=== PATIENT | male | born 1965 | race Caucasian/White ===

== ENCOUNTER 2017-09-28 14:45 | Emergency (ER) | payer OTHER, BC ==
[2017-09-28 14:55] VITALS: BP 128/87
[2017-09-28] MEDS ORDERED: Sodium Chloride 0.9% 10 ML Syringe FLUSH PRN (15:18)
--- NOTE | 2017-09-28 15:32 | EDM.PDOC ---
ED HPI GENERAL MEDICAL PROBLEM - General Chief Complaint: Chest Pain Stated Complaint: CHEST PAIN/RETAINING WATER Time Seen by Provider: 09/28/17 15:10 Source of Information: Reports: Patient History Limitations: Reports: No Limitations - History of Present Illness INITIAL COMMENTS - FREE TEXT/NARRATIVE: 52-year-old male sent over from the [place] for evaluation as pain. Reports the chest pain has been going on for the last 2-3 days. This is the lab will left chest just lateral to the sternum around ribs 4 and 5. He states that it is a constant dull deep pain. Rates it as a 2 or 3 out of 10. Reports associated symptoms of shortness of breath and malaise. Reports diaphoresis with mild exertion. He also feels that he is retaining water as he feels a sloshing in his stomach and has appreciated edema. He denies any nausea, vomiting, lightheadedness or syncope. Denies any pain in his legs. Patient states he's a stress test before as he has had chest pain in the past. Last stress test was somewhere between 2-4 years ago. States he has been told he has a enlarged left atrium or left ventricle in the past. He is currently on a baby aspirin 1 tab every couple days. He wears CPAP at night. Past medical history includes hypertension. No cardiac history. Chest Pain Score (Numeric/FACES): 3 - Related Data Allergies Allergy/AdvReac Type Severity Reaction Status Date / Time erthyomycin Allergy Rash Uncoded 09/28/17 14:50 Home Meds: Home Meds Aspirin [Halfprin] 81 mg PO DAILY 06/04/16 [History] Diclofenac Sodium [Voltaren] 50 mg PO TIDMEALS #30 tab.ec 06/04/16 [Rx] LORazepam [Ativan] 0.5 mg PO ASDIRECTED PRN 06/04/16 [History] Sertraline HCl [Zoloft] 200 mg PO DAILY 06/04/16 [History] predniSONE [Deltasone] 20 mg PO ASDIRECTED #15 tablet 06/04/16 [Rx] Past Medical History Cardiovascular History: Reports: Hypertension Other Cardiovascular History: enlarged left atrium Genitourinary History: Reports: Renal Calculus Psychiatric History: Reports: Anxiety, Depression, PTSD - Past Surgical History GI Surgical History: Reports: Hernia, Abdominal, Other (See Below) Social & Family History - Tobacco Use Smoking Status *Q: Former Smoker Used Tobacco, but Quit: No Month/Year Tobacco Last Used: 2 weeks - Caffeine Use Caffeine Use: Reports: Coffee - Recreational Drug Use Recreational Drug Use: No - Living Situation & Occupation Living situation: Reports: Single Occupation: Employed ED ROS GENERAL - Review of Systems Review Of Systems: See Below Constitutional: Reports: Malaise, Diaphoresis. Denies: Fever HEENT: Denies: Ear Pain, Throat Pain Respiratory: Reports: Shortness of Breath Cardiovascular: Reports: Chest Pain, Edema. Denies: Lightheadedness, Syncope GI/Abdominal: Denies: Abdominal Pain, Nausea, Vomiting Neurological: Denies: Syncope ED EXAM, GENERAL - Physical Exam Exam: See Below Exam Limited By: No Limitations General Appearance: Alert, WD/WN, No Apparent Distress, Obese Eye Exam: Bilateral Eye: Normal Inspection Ears: Normal External Exam Nose: Normal Inspection Throat/Mouth: Normal Inspection, Normal Voice, No Airway Compromise Respiratory/Chest: No Respiratory Distress, Lungs Clear, Normal Breath Sounds, Other (identifies chest pain at the left sternalcostal border at ribs 4 and 5) Cardiovascular: Normal Peripheral Pulses, Regular Rate, Rhythm, No Murmur, Other (trace nonpitting edema) GI/Abdominal: Soft, Non-Tender Neurological: Alert, Oriented, Normal Cognition Psychiatric: Normal Affect, Normal Mood Skin Exam: Warm, Dry, Normal Color EKG INTERPRETATION EKG Date: 09/28/17 Time: 14:55 Rhythm: NSR Rate (Beats/Min): 75 [place]: LAD-Left Delmont Deviation ((-1 degree)) QT: Prolonged (mildly) EKG Interpretation Comments: NSR at 75 bpm. Early "R" wave transition. QT mildly prolonged. LAD (-1 degree). Reviewed by myself and Dr. Becerra. Course - Vital Signs Last Recorded V/S: Last Vital Signs Temp 35.9 C 09/28/17 14:50 Pulse 85 09/28/17 14:50 Resp 13 09/28/17 14:50 BP 128/87 09/28/17 14:50 Pulse Ox 97 09/28/17 14:50 - Orders/Labs/Meds Orders: Active Orders 24 hr Category Date Time Status Cardiac Monitoring [RC] . DIRECTED Care 09/28/17 15:18 Active EKG Documentation Completion [RC] ASDIRECTED Care 09/28/17 15:04 Active Peripheral IV Care [RC] . DIRECTED Care 09/28/17 15:18 Active Chest 1V Frontal [CR] Stat Exams 09/28/17 15:08 Taken Peripheral IV Insertion Adult [OM.PC] Routine Oth 09/28/17 15:18 Ordered EKG 12 Lead [EK] Stat Ther 09/28/17 15:04 Ordered Labs: Laboratory Tests 09/28/17 09/28/17 09/28/17 Range/Units 14:53 14:53 14:53 WBC 10.46 H (4.23-9.07) K/mm3 RBC 5.05 (4.63-6.08) M/mm3 Hgb 14.9 (13.7-17.5) gm/L Hct 43.8 (40.1-51.0) % MCV 86.7 (79.0-92.2) fl MCH 29.5 (25.7-32.2) pg MCHC 34.0 (32.2-35.5) g/dl RDW Std Deviation 42.0 (35.1-43.9) fL Plt Count 302 (163-337) K/mm3 MPV 10.1 (9.4-12.3) fl Neut % (Auto) 56.2 (34.0-67.9) % Lymph % (Auto) 33.7 (21.8-53.1) % Hudspeth % (Auto) 6.6 (5.3-12.2) % Eos % (Auto) 2.8 (0.8-7.0) Baso % (Auto) 0.4 (0.1-1.2) % Neut # (Auto) 5.89 H (1.78-5.38) K/mm3 Lymph # (Auto) 3.52 (1.32-3.57) K/mm3 Hudspeth # (Auto) 0.69 (0.30-0.82) K/mm3 Eos # (Auto) 0.29 (0.04-0.54) K/mm3 Baso # (Auto) 0.04 (0.01-0.08) K/mm3 PT 10.2 (8.0-13.0) SECONDS INR 0.95 APTT 27 (22-36) SECONDS D-Dimer, Quantitative (0.19-0.59) mg/L Sodium (136-145) mEq/L Potassium (3.5-5.1) mEq/L Chloride (98-107) mEq/L Carbon Dioxide (21-32) mEq/L Anion Gap (5-15) BUN (7-18) mg/dL Creatinine (0.7-1.3) mg/dL Est Cr Clr Drug Dosing mL/min Estimated GFR (MDRD) (>60) mL/min BUN/Creatinine Ratio (14-18) Glucose (74-106) mg/dL Calcium (8.5-10.1) mg/dL Total Bilirubin (0.2-1.0) mg/dL AST (15-37) U/L ALT (16-63) U/L Alkaline Phosphatase (46-116) U/L CK-MB (CK-2) 0.8 (0-3.6) ng/ml Troponin I < 0.017 (0.00-0.056) ng/mL NT-Pro-B Natriuret Pep (0-125) pg/mL Total Protein (6.4-8.2) g/dl Albumin (3.4-5.0) g/dl Globulin gm/dL Albumin/Globulin Ratio (1-2) Lipase (73-393) U/L 09/28/17 09/28/17 09/28/17 Range/Units 14:53 14:53 14:53 WBC (4.23-9.07) K/mm3 RBC (4.63-6.08) M/mm3 Hgb (13.7-17.5) gm/L Hct (40.1-51.0) % MCV (79.0-92.2) fl MCH (25.7-32.2) pg MCHC (32.2-35.5) g/dl RDW Std Deviation (35.1-43.9) fL Plt Count (163-337) K/mm3 MPV (9.4-12.3) fl Neut % (Auto) (34.0-67.9) % Lymph % (Auto) (21.8-53.1) % Hudspeth % (Auto) (5.3-12.2) % Eos % (Auto) (0.8-7.0) Baso % (Auto) (0.1-1.2) % Neut # (Auto) (1.78-5.38) K/mm3 Lymph # (Auto) (1.32-3.57) K/mm3 Hudspeth # (Auto) (0.30-0.82) K/mm3 Eos # (Auto) (0.04-0.54) K/mm3 Baso # (Auto) (0.01-0.08) K/mm3 PT (8.0-13.0) SECONDS INR APTT (22-36) SECONDS D-Dimer, Quantitative 0.38 (0.19-0.59) mg/L Sodium 140 (136-145) mEq/L Potassium 4.0 (3.5-5.1) mEq/L Chloride 103 (98-107) mEq/L Carbon Dioxide 28 (21-32) mEq/L Anion Gap 13.0 (5-15) BUN 15 (7-18) mg/dL Creatinine 0.9 (0.7-1.3) mg/dL Est Cr Clr Drug Dosing 101.39 mL/min Estimated GFR (MDRD) > 60 (>60) mL/min BUN/Creatinine Ratio 16.7 (14-18) Glucose 108 H (74-106) mg/dL Calcium 9.4 (8.5-10.1) mg/dL Total Bilirubin 0.3 (0.2-1.0) mg/dL AST 29 (15-37) U/L ALT 49 (16-63) U/L Alkaline Phosphatase 95 (46-116) U/L CK-MB (CK-2) (0-3.6) ng/ml Troponin I (0.00-0.056) ng/mL NT-Pro-B Natriuret Pep 51 (0-125) pg/mL Total Protein 7.8 (6.4-8.2) g/dl Albumin 4.2 (3.4-5.0) g/dl Globulin 3.6 gm/dL Albumin/Globulin Ratio 1.2 (1-2) Lipase 115 (73-393) U/L Meds: Medications Discontinued Medications Generic Name Dose Route Start Last Admin Trade Name Freq PRN Reason Stop Dose Admin Sodium Chloride 10 ml 09/28/17 15:18 09/28/17 15:24 Saline Flush FLUSH 10 ml ASDIRECTED PRN Administration Keep Vein Open - Radiology Interpretation Free Text/Narrative:: Chest: Portable view of the chest was obtained. Comparison: Prior chest x-ray of 06/09/16. Heart size and mediastinum are normal. Lungs are clear. Bony structures are grossly intact. Impression: 1. Nothing acute is seen on portable chest x-ray. - Re-Assessments/Exams Free Text/Narrative Re-Assessment/Exam: 09/28/17 16:50 I reviewed the labs, EKG and imaging the patient. Appears the chest wall in origin. I will have him follow-up with his primary care provider. Discharge instructions as documented. Departure - Departure Time of Disposition: 16:52 Disposition: Home, Self-Care 01 Condition: Fair Clinical Impression: Chest wall pain Instructions: Chest Wall Pain, [id number] Referrals: Rossy Clarke DO [Primary Care Provider] - Forms: ED Department Discharge Additional Instructions: [id number] Tylenol or Motrin as needed for pain relief. You may also try using heat or ice for additional pain relief. Expect this to last about 7-10 days. If this persists beyond 7-10 days follow- up with your primary care provider. Please return to the ER if your symptoms change or worsen. - My Orders Last 24 Hours: My Active Orders 09/28/17 15:04 EKG Documentation Completion [RC] ASDIRECTED EKG 12 Lead [EK] Stat 09/28/17 15:08 Chest 1V Frontal [CR] Stat 09/28/17 15:18 Cardiac Monitoring [RC] . DIRECTED Peripheral IV Care [RC] . DIRECTED Peripheral IV Insertion Adult [OM.PC] Routine - Assessment/Plan Last 24 Hours: My Active Orders 09/28/17 15:04 EKG Documentation Completion [RC] ASDIRECTED EKG 12 Lead [EK] Stat 09/28/17 15:08 Chest 1V Frontal [CR] Stat 09/28/17 15:18 Cardiac Monitoring [RC] . DIRECTED Peripheral IV Care [RC] . DIRECTED Peripheral IV Insertion Adult [OM.PC] Routine
--- NOTE | 2017-09-29 07:58 | CR ---
Chest: Portable view of the chest was obtained. Comparison: Prior chest x-ray of 06/09/16. Heart size and mediastinum are normal. Lungs are clear. Bony structures are grossly intact. Impression: 1. Nothing acute is seen on portable chest x-ray. Diagnostic code #1
== END 2017-09-28 16:55 | disposition home or self-care (01) ==
LOC: JD.ED 14:45
DX: R07.81 Pleurodynia (principal); I10 Essential (primary) hypertension; F41.9 Anxiety disorder, unspecified; F32.9 Major depressive disorder, single episode, unspecified; Z87.891 Personal history of nicotine dependence; Z88.1 Allergy status to other antibiotic agents; Z87.441 Personal history of nephrotic syndrome; Z79.82 Long term (current) use of aspirin; Z79.899 Other long term (current) drug therapy
CPT/HCPCS: 36415; 71045; 80053; 82553; 83690; 83880; 84484; 85025; 85379; 85610; 85730; 93005; 99285; J7050; 93010; 99284

== ENCOUNTER 2018-08-18 12:54 | Emergency (ER) | payer BC, OTHER ==
[2018-08-18 13:10] VITALS: BP 139/78
[2018-08-18] MEDS ORDERED: methylPREDNISolone Sodium Succinate 125 MG/2 ML SDV IVPUSH ONE (13:33)
[2018-08-18] MEDS ORDERED: diphenhydrAMINE 50 MG/ML SDV IVPUSH ONE (13:33)
[2018-08-18] MEDS ORDERED: Famotidine 20 MG/2 ML SDV IVPUSH ONE (13:33)
--- NOTE | 2018-08-18 13:37 | EDM.PDOC ---
ED HPI GENERAL MEDICAL PROBLEM - General Chief Complaint: Allergic Reaction Stated Complaint: ALLERGIC REACTION Time Seen by Provider: 08/18/18 13:32 Source of Information: Reports: Patient History Limitations: Reports: No Limitations - History of Present Illness INITIAL COMMENTS - FREE TEXT/NARRATIVE: 53-year-old male reports to the ED due to breaking out in a diffuse erythematous rash with a few spots of urticaria and generalized erythema. He is itching everywhere. States he awoke this way at 0700 hrs. morning and as the day has gone on his symptoms are getting worse. He has a symptoms of some shortness of breath and some difficulty swallowing or fullness in his throat. Also notable wheezing. Note he is a smoker however as well. No previous allergic reactions to anything. No recent use of knots red food dyes or to his knowledge any seafood problems. He had shrimp the night before last but his had it many times in the past. The only thing new that he can think of is that he is fresh kenan plant on his food for seasoning last night. He has been ill with an upper spine tract infection about 2 weeks ago but he states he got better without any issues. No recent antibiotic usage is. He's been using Advil for many years with no problems from arthritis. date did take 50 mg of Benadryl about an hour ago. Onset: Today Onset Date: 08/18/18 Onset Time: 07:00 Duration: Hour(s): Location: Reports: Generalized (Generalized pruritus particularly axilla or groin chest neck scalp and upper extremities.) Quality: Reports: Other Severity: Moderate (Generalized pruritus) Improves with: Reports: None Worsens with: Reports: None Context: Denies: Activity, Exercise, Lifting, Sick Contact, Trauma, Other Associated Symptoms: Reports: Other (Some feeling of dyspnea with wheezing and a bit of a pressure in the back of his throat.) Treatments SOLUTIONS CONSULTANT: Reports: Other (see below) Other Treatments SOLUTIONS CONSULTANT: benadryl Generalized Pain Score (Numeric/FACES): 7 - Related Data Allergies Allergy/AdvReac Type Severity Reaction Status Date / Time erythromycin base Allergy Cannot Verified 04/18/18 12:33 Remember Home Meds: Home Meds LORazepam [Ativan] 0.5 mg PO ASDIRECTED PRN 06/04/16 [History] Sertraline HCl [Zoloft] 200 mg PO DAILY 06/04/16 [History] Albuterol Sulfate [Proair Respiclick] 2 puff IH ASDIRECTED PRN 04/18/18 [History ] Cholecalciferol (Vitamin D3) [Vitamin D3] 1,000 units PO DAILY 04/18/18 [History ] Vitamin B Complex 3 - 4 each PO Q2D 04/18/18 [History] atorvaSTATin [Lipitor] 80 mg PO BEDTIME 04/18/18 [History] predniSONE [Deltasone] 20 mg PO BID #6 tablet 08/18/18 [Rx] Past Medical History HEENT History: Reports: None Cardiovascular History: Reports: High Cholesterol Other Cardiovascular History: Chest pain Respiratory History: Reports: Asthma, Sleep Apnea, SOB, Other (See Below) Other Respiratory History: Uses CPAP Gastrointestinal History: Reports: Colon Polyp, Hemorrhoids, Other (See Below) Other Gastrointestinal History: Diverticulitis Genitourinary History: Reports: None Musculoskeletal History: Reports: None Neurological History: Reports: None Psychiatric History: Reports: Depression, PTSD Endocrine/Metabolic History: Reports: Obesity/BMI 30+, Vitamin D Deficiency Hematologic History: Reports: None Immunologic History: Reports: None Oncologic (Cancer) History: Reports: None Dermatologic History: Reports: None - Past Surgical History Head Surgeries/Procedures: Reports: None HEENT Surgical History: Reports: None Cardiovascular Surgical History: Reports: None Respiratory Surgical History: Reports: None GI Surgical History: Reports: Bariatric Procedure, Colonoscopy, Hernia Repair/ Other Male Surgical History: Reports: None Endocrine Surgical History: Reports: None Neurological Surgical History: Reports: None Musculoskeletal Surgical History: Reports: None Oncologic Surgical History: Reports: Other (See Below) Other Oncologic Surgeries/Procedures: Lymph node biopsy Dermatological Surgical History: Reports: None Social & Family History - Tobacco Use Smoking Status *Q: Current Every Day Smoker Years of Tobacco use: 20 Packs/Tins Daily: 0.7 - Caffeine Use Caffeine Use: Reports: Coffee, Tea - Recreational Drug Use Recreational Drug Use: No - Living Situation & Occupation Living situation: Reports: Single Occupation: Employed ED ROS ALLERGIC REACTION - Review of Systems Review Of Systems: See Below Constitutional: Denies: Fever, Chills, Malaise, Weakness, Fatigue, Decreased Appetite, Weight Loss HEENT: Reports: Other (Retro-orbital pressure discomfort but no true eye symptoms from) Respiratory: Reports: Shortness of Breath, Wheezing Cardiovascular: Reports: No Symptoms Endocrine: Reports: No Symptoms GI/Abdominal: Reports: Abdominal Pain (Had some looser stool this morning with a lot of gas.), Diarrhea (Semi-formed stool) : Reports: No Symptoms Musculoskeletal: Reports: No Symptoms Skin: Reports: Pruritis, Rash, Erythema (Analyzed erythema) Neurological: Reports: No Symptoms (Has been scratching everywhere particular across his chest and arms.) Psychiatric: Reports: No Symptoms Hematologic/Lymphatic: Reports: No Symptoms ED EXAM GENERAL NO PERIP PULSE - Physical Exam Exam: See Below Exam Limited By: No Limitations General Appearance: Alert, WD/WN, Moderate Distress Eye Exam: Bilateral Eye: Normal Inspection (Swelling of the upper and lower eyelids.) Ears: Normal TMs Throat/Mouth: Normal Inspection, Normal Lips, Normal Oropharynx, Other Head: Atraumatic, Normocephalic (Uvula and for the mouth are normal.) Neck: Normal Inspection, Supple, Non-Tender, Full Range of Motion. No: Lymphadenopathy (L), Lymphadenopathy (R) Respiratory/Chest: No Respiratory Distress, No Accessory Muscle Use, Decreased Breath Sounds (Mild expiratory wheezing bilaterally. Of note the patient is a smoker.), Wheezing, Other ( Her mildly decreased in both posterior lung pacheco. no stridor. ) Cardiovascular: Normal Peripheral Pulses, Regular Rate, Rhythm, No Edema, No Rub GI/Abdominal: Normal Bowel Sounds, Soft, Non-Tender, No Organomegaly, No Abnormal Bruit, No Mass, Pelvis Stable Extremities: Normal Inspection, Normal Range of Motion, Non-Tender, No Pedal Edema, Amber's Sign Neurological: Alert, Oriented, CN II-XII Intact, Normal Cognition Psychiatric: Normal Affect, Normal Mood Skin Exam: Warm, Dry, Intact, Erythema, Other (Scattered erythema with no hives evident this time. A second excessive excoriations of the skin from scratching.) Course - Vital Signs Last Recorded V/S: Last Vital Signs Temp 36.5 C 08/18/18 13:09 Pulse 82 08/18/18 13:09 Resp 20 08/18/18 13:09 BP 139/78 08/18/18 13:09 Pulse Ox 96 08/18/18 13:09 - Orders/Labs/Meds Orders: Active Orders 24 hr Category Date Time Status Sodium Chloride 0.9% [Normal Saline] 1,000 ml Med 08/18/18 13:45 Active IV ASDIRECTED Medication Orders Sodium Chloride (Normal Saline) 1,000 mls @ 999 mls/hr IV ASDIRECTED ANUJA Last Admin: 08/18/18 13:48 Dose: 999 mls/hr Meds: Medications Generic Name Dose Route Start Last Admin Trade Name Freq PRN Reason Stop Dose Admin Sodium Chloride 1,000 mls @ 999 mls/hr 08/18/18 13:45 08/18/18 13:48 Normal Saline IV 999 mls/hr ASDIRECTED ANUJA Administration Discontinued Medications Generic Name Dose Route Start Last Admin Trade Name Freq PRN Reason Stop Dose Admin Diphenhydramine HCl 25 mg 08/18/18 13:33 08/18/18 13:46 Benadryl IVPUSH 08/18/18 13:34 25 mg ONETIME ONE Administration Famotidine 20 mg 08/18/18 13:33 08/18/18 13:41 Pepcid IVPUSH 08/18/18 13:34 20 mg ONETIME ONE Administration Methylprednisolone Sodium Succinate 125 mg 08/18/18 13:33 08/18/18 13:44 Solu-Medrol IVPUSH 08/18/18 13:34 125 mg ONETIME ONE Administration - Radiology Interpretation Free Text/Narrative:: 53-year-old male presents to the ED with an allergic reaction to unknown substance. Symptoms started about 0700 hrs. this morning upon awakening. Therefore it suspicious that something a atypical contused body within the last 24 hours. At any rate he has not experienced any significant respiratory distress or stridor. Most of his symptoms appear to be in the skin. He took 50 mg of Benadryl orally before coming to the ED about an hour ago and therefore that'll be just starting to work. Plan IV normal saline at open. Given Benadryl 25 mg IV with Pepcid 20 mg IV and Solu-Medrol 125 mg IV to alleviate allergic response since it seems to be getting worse over the last 6 hours rather than better. - Re-Assessments/Exams Free Text/Narrative Re-Assessment/Exam: 08/18/18 14:42 patient is feeling better with no further itching. He still remains mildly erythematous. Still feels a bit of thickening in the back of his tongue but no true difficulty swallowing. He will therefore be discharged to home. I plan on placing him on prednisone 20 mg twice a day for the first dose due tomorrow morning. He will take this for 3 days. Benadryl 50 mg every 6 hours needed for relief of itching and/or recurrence of any hives. Departure - Departure Time of Disposition: 14:43 Disposition: Home, Self-Care 01 Condition: Fair Clinical Impression: Allergic reaction Qualifiers: Encounter type: initial encounter Qualified Code(s): T78.40XA - Allergy, unspecified, initial encounter - Discharge Information *PRESCRIPTION DRUG MONITORING PROGRAM REVIEWED*: Not Applicable *COPY OF PRESCRIPTION DRUG MONITORING REPORT IN PATIENT MARIBEL: Not Applicable Prescriptions: predniSONE [Deltasone] 20 mg PO BID #6 tablet Instructions: Allergies, Adult, [id number] Referrals: Yas Quiros MD [Primary Care Provider] - Forms: ED Department Discharge Additional Instructions: Evaluation in the emergency department today in regards to acute allergic reaction to unknown substance. Almost always in an adult it is secondary to a medication or herbal or food that you have taken anterior body within the last 24 hours before symptoms develop. Usually is within 12 hours of symptom development. We discussed the only thing he can think of is fresh kenan on food last night that may or may not have been the culprit. At any rate she developed mostly signs and symptoms of allergic reaction in your skin with generalized itching and redness without any definitive hive development. Associated some thickening of your tongue and difficulty swallowing and perhaps some increased wheezing in your lungs. You're treated in the ED with 25 mg of Benadryl as you have taken 50 mg at home. You're also given Pepcid 20 mg and Solu-Medrol 125 mg IV for acute allergic reaction. The Solu-Medrol will take about 3 hours to work and should start to bring the allergic reaction under good control with unlikely to have a recurrence. However if you do developed increased redness itching or hives then you should take Benadryl 50 mg by mouth again. This can be repeated every 6 hours as needed. I would suggest using Deltasone 20 mg with breakfast and supper for the next 3 days starting tomorrow morning to make sure the allergic reaction comes under complete control. At this time I would not recommend allergy testing at his as not very useful in terms of identifying the of offensive agent. I would avoid kenan of course and see if you ever develop any further symptoms. - My Orders Last 24 Hours: My Active Orders 08/18/18 13:45 Sodium Chloride 0.9% [Normal Saline] 1,000 ml IV ASDIRECTED - Assessment/Plan Last 24 Hours: My Active Orders 08/18/18 13:45 Sodium Chloride 0.9% [Normal Saline] 1,000 ml IV ASDIRECTED
[2018-08-18] MEDS ORDERED: Sodium Chloride 0.9% 1,000 ML IV SCH (13:45)
== END 2018-08-18 14:57 | disposition home or self-care (01) ==
LOC: JD.ED 12:54
DX: T78.40XA Allergy, unspecified, initial encounter (principal); E66.9 Obesity, unspecified; L50.9 Urticaria, unspecified; F17.210 Nicotine dependence, cigarettes, uncomplicated; Z88.1 Allergy status to other antibiotic agents; Z79.899 Other long term (current) drug therapy
CPT/HCPCS: 96361; 96374; 96375; 99283; J1200; J2930; J3490; J7040; 99284